=== PATIENT | male | born 1985 | race African-American/Black ===

== ENCOUNTER 2016-09-15 21:59 | Inpatient (IN) | payer MEDICAID, OTHER ==
[~2016-09-15] VITALS: Ht 175.3 cm; Wt 97.5 kg
[2016-09-16] MEDS ORDERED: SODIUM CHLORIDE 0.9% 1,000 ML IV ONE (04:23)
[2016-09-16] MEDS ORDERED: BACITRACIN ZINC OINT UDPKT TOP ONE (04:30)
[2016-09-16] MEDS ORDERED: CEFTRIAXONE 1 G PREMIX 50 ML IV ONE (04:30)
[2016-09-16] MEDS ORDERED: LIDOCAINE HCL 1%/EPI 1:200,000 30 ML VIAL MC ONE (04:30)
[2016-09-16 04:46] LABS: BASOPHILS % 0.7 % (0.0-2.0); EOSINOPHILS % 0.6 % (0.0-5.0); HEMATOCRIT. 43.2 % (42.0-52.0); HEMOGLOBIN. 14.9 g/dL (14.0-18.0); LYMPHOCYTES % 13.3 % (20.0-50.0); MEAN CORPUSCULAR HEMOGLOBIN 32.1 pg (28.0-32.0); MEAN CORPUSCULAR HGB CONC 34.6 g/dL (31.0-37.0); MEAN CORPUSCULAR VOLUME 92.9 fL (80.0-94.0); MEAN PLATELET VOLUME 7.8 fl (7.4-10.4); MONOCYTES % 7.9 % (2.0-8.0); NEUTROPHILS % 77.5 % (40.0-76.0); PLATELET 288 x1000/uL (130-400); RED BLOOD CELL COUNT 4.65 mill/uL (4.7-6.1); RED CELL DISTRIBUTION WIDTH 13.9 % (11.6-14.6); WHITE BLOOD COUNT 12.2 x1000/uL (4.5-11.0)
[2016-09-16 04:50] LABS: INR 1.1; PROTHROMBIN TIME 11.3 sec
[2016-09-16 04:57] LABS: ALANINE AMINOTRANSFERASE 35 IU/L (13-61); ALBUMIN 3.6 g/dL (3.4-5.0); ANION GAP 11; CALCIUM 8.8 mg/dL (8.5-10.1); CARBON DIOXIDE 30 mEq/L (21-32); CHLORIDE 101 mEq/L (98-107); INDEX HEMOLYSI 1 (1-3); INDEX ICTERIC 1 (1-4); INDEX LIPEMIC 1 (1-3); UREA NITROGEN BLOOD 11 mg/dL (7-21); eGFR > 60 mL/min (>60)
[2016-09-16 05:21] LABS: CLARITY URINE CLOUDY (CLEAR); COLOR URINE YELLOW (YELLOW); GLUCOSE URINE NEGATIVE (NEGATIVE); KETONES URINE NEGATIVE (NEGATIVE); LEUKOCYTE ESTERASE URINE 3+ (NEGATIVE); NITRITE URINE NEGATIVE (NEGATIVE); OCCULT BLOOD URINE NEGATIVE (NEGATIVE); PROTEIN URINE NEGATIVE (NEGATIVE); SPECIFIC GRAVITY URINE 1.009 (1.005-1.030); UROBILINOGEN URINE 0.2 E.U./dL (0.2-1.0)
[2016-09-16 05:52] LABS: SQUAMOUS EPITHELIAL CELL URINE FEW /lpf (RARE/1+)
[2016-09-16 05:53] LABS: RBC URINE 0-2 /hpf (0-2); WBC URINE 50-100 /hpf (0-2)
[2016-09-16 05:57] LABS: BACTERIA URINE TRACE
[2016-09-16] MEDS ORDERED: IOHEXOL-300 100 ML BOTTLE ONE (06:00)
[2016-09-16] MEDS ORDERED: SODIUM CHLORIDE 0.9% 10ML VIAL ONE (06:00)
[2016-09-16] MEDS ORDERED: SULFAMETHOXAZOLE/TRIMETHOPRIM 800/160MG TABLET PO ONE (06:45)
[2016-09-16 11:13] VITALS: BP 118/74
[2016-09-16 11:15] VITALS: BP 118/74
[2016-09-16] MEDS ORDERED: CLONIDINE 0.1MG TABLET PO PRN (15:00)
[2016-09-16] MEDS ORDERED: DIPHENHYDRAMINE 50MG/ML VIAL IV PRN (15:00)
[2016-09-16] MEDS ORDERED: HYDROCODONE/ACETAMINOPHEN 10/325MG TABLET PO PRN (15:00)
[2016-09-16] MEDS ORDERED: HYDROCODONE/ACETAMINOPHEN 5/325MG TABLET PO PRN (15:00)
[2016-09-16] MEDS ORDERED: LORAZEPAM 1MG TABLET PO PRN (15:00)
[2016-09-16] MEDS ORDERED: NA PHOS,M-B/NA PHOS,DI-BA ENEMA 118ML PR PRN (15:00)
[2016-09-16] MEDS ORDERED: MAGNESIUM/ALUMINUM HYDROXIDE/SIMETHICONE 30ML UDC PO PRN (15:00)
[2016-09-16] MEDS ORDERED: IPRATROPIUM/ALBUTEROL 0.5-3(2.5)MG/3ML NEB INH PRN (15:00)
[2016-09-16] MEDS ORDERED: GUAIFENESIN 200MG/10ML SUGAR FREE UDC PO PRN (15:00)
[2016-09-16] MEDS ORDERED: DOCUSATE SODIUM 100MG CAPSULE PO PRN (15:00)
[2016-09-16 16:00] VITALS: BP 129/86
[2016-09-16] MEDS: CLINDAMYCIN 600 MG in DEXTROSE 5% WATER 50 ML IV SCH (17:29)
[2016-09-16 20:00] VITALS: BP 126/69
[2016-09-17] VITALS: BP 136/83
[2016-09-17] MEDS: CLINDAMYCIN 600 MG in DEXTROSE 5% WATER 50 ML IV SCH ×2 (02:45→10:01)
[2016-09-17 04:00] VITALS: BP 115/84
[2016-09-17 06:30] LABS: BASOPHILS % 0.5 % (0.0-2.0); EOSINOPHILS % 3.3 % (0.0-5.0); HEMATOCRIT. 43.5 % (42.0-52.0); HEMOGLOBIN. 14.9 g/dL (14.0-18.0); LYMPHOCYTES % 23.1 % (20.0-50.0); MEAN CORPUSCULAR HEMOGLOBIN 32.3 pg (28.0-32.0); MEAN CORPUSCULAR HGB CONC 34.3 g/dL (31.0-37.0); MEAN CORPUSCULAR VOLUME 94.2 fL (80.0-94.0); MEAN PLATELET VOLUME 7.7 fl (7.4-10.4); MONOCYTES % 10.7 % (2.0-8.0); NEUTROPHILS % 62.4 % (40.0-76.0); PLATELET 287 x1000/uL (130-400); RED BLOOD CELL COUNT 4.62 mill/uL (4.7-6.1); RED CELL DISTRIBUTION WIDTH 13.9 % (11.6-14.6)
[2016-09-17 07:11] LABS: ALBUMIN 3.2 g/dL (3.4-5.0); CHLORIDE 103 mEq/L (98-107); INDEX HEMOLYSI 1 (1-3); INDEX ICTERIC 1 (1-4); INDEX LIPEMIC 1 (1-3)
[2016-09-17 07:22] LABS: ALANINE AMINOTRANSFERASE 34 IU/L (13-61); ANION GAP 10; CALCIUM 8.6 mg/dL (8.5-10.1); CARBON DIOXIDE 29 mEq/L (21-32); HDL CHOLESTEROL 80 mg/dL (40-59); LDL CHOLESTEROL 82 mg/dL (5-100); T4 FREE 1.01 ng/dL (0.76-1.46); TRIGLYCERIDE 61 mg/dL (0-150); UREA NITROGEN BLOOD 11 mg/dL (7-21); eGFR > 60 mL/min (>60)
[2016-09-17 08:00] VITALS: BP 121/69
[2016-09-17 12:00] VITALS: BP 118/71
[2016-09-17] MEDS ORDERED: CLIN-79 PO (13:24)
[2016-09-17 14:55] VITALS: BP 118/71
== END 2016-09-17 15:30 | disposition home or self-care (01) | DRG 364 ==
LOC: ER 09-16 07:54 → 6EST 09-16 09:03
PROVIDERS: ADMIT Internal Medicine; ATTEND Internal Medicine
PROC: 0W920ZZ Drainage of Face, Open Approach (ICD-10-PCS; principal; 2016-09-16)
DX: L03.211 Cellulitis of face (principal); F17.210 Nicotine dependence, cigarettes, uncomplicated; Z60.2 Problems related to living alone
CPT/HCPCS: 36415; 70491; 71010; 80053; 80061; 81001; 83605; 84439; 84443; 85025; 85610; 87040; 87077; 87086; 93005; 96374; 99285; A4216; J0696; J3490; J7030; J7060; Q9967

== ENCOUNTER 2016-09-18 15:18 | Emergency (ER) | payer MEDICAID ==
[~2016-09-18] VITALS: Ht 175.3 cm; Wt 100.0 kg
[~2016-09-18 15:18] MED LIST: CLIN-79 PO
[2016-09-18 15:38] VITALS: BP 129/78
== END 2016-09-18 19:06 | disposition home or self-care (01) ==
LOC: ER 18:37
DX: Z48.01 Encounter for change or removal of surgical wound dressing (principal); F17.200 Nicotine dependence, unspecified, uncomplicated; F12.10 Cannabis abuse, uncomplicated
CPT/HCPCS: 99283

== ENCOUNTER 2018-01-05 18:14 | Emergency (ER) | payer MEDICAID ==
[~2018-01-05] VITALS: Ht 177.8 cm; Wt 100.0 kg
[~2018-01-05 18:14] MED LIST changes: -CLIN-79 PO; +CLIN300C11 PO
[2018-01-05 22:07] LABS: BASOPHILS % 0.6 % (0.0-2.0); EOSINOPHILS % 1.1 % (0.0-5.0); HEMATOCRIT. 46.6 % (42.0-52.0); LYMPHOCYTES % 13.7 % (20.0-50.0); MEAN CORPUSCULAR HEMOGLOBIN 32.2 pg (28.0-32.0); MEAN CORPUSCULAR VOLUME 93.7 fL (80.0-94.0); MEAN PLATELET VOLUME 7.8 fl (7.4-10.4); MONOCYTES % 6.7 % (2.0-8.0); NEUTROPHILS % 77.9 % (40.0-76.0); PLATELET 282 x1000/uL (130-400); RED BLOOD CELL COUNT 4.97 mill/uL (4.7-6.1); RED CELL DISTRIBUTION WIDTH 14.4 % (11.6-14.6)
[2018-01-05 22:14] LABS: CHLORIDE 105 mEq/L (98-107)
[2018-01-05 22:18] LABS: ETHANOL BLOOD < 10 mg/dL
[2018-01-05 22:53] LABS: CLARITY URINE CLEAR (CLEAR); COLOR URINE YELLOW (YELLOW); KETONES URINE NEGATIVE (NEGATIVE); LEUKOCYTE ESTERASE URINE 1+ (NEGATIVE); NITRITE URINE NEGATIVE (NEGATIVE); OCCULT BLOOD URINE NEGATIVE (NEGATIVE); PROTEIN URINE NEGATIVE (NEGATIVE); SPECIFIC GRAVITY URINE 1.007 (1.005-1.030); UROBILINOGEN URINE 0.2 E.U./dL (0.2-1.0)
[2018-01-05 23:15] LABS: *AMPHETAMINES SCREEN URINE NEGATIVE (NEGATIVE); *BARBITURATES SCREEN URINE NEGATIVE (NEGATIVE); *BENZODIAZEPINES SCREEN URINE NEGATIVE (NEGATIVE); *COCAINE SCREEN URINE NEGATIVE (NEGATIVE); METHADONE URINE SCREEN NEGATIVE (NEGATIVE); OPIATES URINE SCREEN NEGATIVE (NEGATIVE); PHENCYCLIDINE URINE SCREEN NEGATIVE (NEGATIVE)
[2018-01-05 23:16] LABS: CANNABINOID URINE SCREEN PRESUMTIVE POSITIVE (NEGATIVE)
[2018-01-06] MEDS ORDERED: LEVOFLOXACIN 250MG TABLET PO SCH (02:00)
[2018-01-06 20:24] LABS: CHLORIDE 104 mEq/L (98-107)
[2018-01-06] MEDS ORDERED: LEVOFLOXACIN 250MG TABLET PO NR (21:45)
[2018-01-06 23:27] VITALS: BP 127/78
== END 2018-01-06 23:35 ==
LOC: ER 21:13
DX: T50.902A Poisoning by unspecified drugs, medicaments and biological substances, intentional self-harm, initial encounter (principal); F25.9 Schizoaffective disorder, unspecified; Y92.89 Other specified places as the place of occurrence of the external cause; N39.0 Urinary tract infection, site not specified; F10.10 Alcohol abuse, uncomplicated; Y90.0 Blood alcohol level of less than 20 mg/100 ml; F12.90 Cannabis use, unspecified, uncomplicated; F17.210 Nicotine dependence, cigarettes, uncomplicated
CPT/HCPCS: 36415; 71045; 80048; 80053; 80305; 80307; 81003; 85025; 99285; G0482; Z7610

== ENCOUNTER 2018-11-11 17:57 | Emergency (ER) | payer MEDICAID ==
[~2018-11-11] VITALS: Ht 175.3 cm; Wt 84.0 kg
[2018-11-11] MEDS ORDERED: LIDOCAINE HCL/PF 1% 10 MG/ML 5ML VIAL IJ ONE (19:00)
[2018-11-11] MEDS ORDERED: BACITRACIN ZINC OINT UDPKT TOP ONE (19:00)
[2018-11-11] MEDS ORDERED: TETANUS, DIPHTHERIA, PERTUSSIS VAC/PF 0.5ML (>7YR OLD) IM ONE (19:00)
[2018-11-11 20:07] VITALS: BP 132/82
== END 2018-11-11 20:13 | disposition home or self-care (01) ==
LOC: ER 18:00
DX: S01.01XA Laceration without foreign body of scalp, initial encounter (principal); F20.9 Schizophrenia, unspecified; F17.210 Nicotine dependence, cigarettes, uncomplicated; F12.10 Cannabis abuse, uncomplicated; Y04.0XXA Assault by unarmed brawl or fight, initial encounter; W22.09XA Striking against other stationary object, initial encounter; Y93.89 Activity, other specified; Y92.89 Other specified places as the place of occurrence of the external cause
CPT/HCPCS: 12002; 90471; 90715; 99283; J3490

== ENCOUNTER 2018-11-23 19:10 | Emergency (ER) | payer MEDICAID ==
[~2018-11-23] VITALS: Ht 177.8 cm; Wt 84.0 kg
[2018-11-23 19:35] VITALS: BP 11/63
== END 2018-11-23 23:45 | disposition home or self-care (01) ==
LOC: ER 23:27
DX: Z48.02 Encounter for removal of sutures (principal); F20.9 Schizophrenia, unspecified; F12.10 Cannabis abuse, uncomplicated; F17.210 Nicotine dependence, cigarettes, uncomplicated
CPT/HCPCS: 99281; Z7610

== ENCOUNTER 2019-02-12 04:34 | Emergency (ER) | payer MEDICAID ==
[~2019-02-12] VITALS: Ht 172.7 cm; Wt 84.9 kg
[2019-02-12 05:39] LABS: BASOPHILS % 0.4 % (0.0-2.0); EOSINOPHILS % 0.7 % (0.0-5.0); HEMATOCRIT. 47.2 % (42.0-52.0); HEMOGLOBIN. 16.3 g/dL (14.0-18.0); LYMPHOCYTES % 7.4 % (20.0-50.0); MEAN CORPUSCULAR HEMOGLOBIN 33.3 pg (28.0-32.0); MEAN CORPUSCULAR VOLUME 96.6 fL (80.0-94.0); MEAN PLATELET VOLUME 7.3 fl (7.4-10.4); MONOCYTES % 4.4 % (2.0-8.0); NEUTROPHILS % 87.1 % (40.0-76.0); PLATELET 302 x1000/uL (130-400); RED BLOOD CELL COUNT 4.89 mill/uL (4.7-6.1); RED CELL DISTRIBUTION WIDTH 14.7 % (11.6-14.6)
[2019-02-12 05:45] LABS: CHLORIDE 104 mEq/L (98-107)
[2019-02-12 05:49] LABS: ETHANOL BLOOD < 10 mg/dL
[2019-02-12 06:01] LABS: CLARITY URINE CLEAR (CLEAR); COLOR URINE DARK YELLOW (YELLOW); KETONES URINE 1+ (NEGATIVE); LEUKOCYTE ESTERASE URINE 1+ (NEGATIVE); NITRITE URINE NEGATIVE (NEGATIVE); OCCULT BLOOD URINE NEGATIVE (NEGATIVE); PROTEIN URINE NEGATIVE (NEGATIVE); SPECIFIC GRAVITY URINE 1.021 (1.005-1.030)
[2019-02-12] MEDS ORDERED: SODIUM CHLORIDE 0.9% 1,000 ML IV ONE (06:22)
[2019-02-12] MEDS ORDERED: MORPHINE SULFATE 4 MG/ML CPJ (NOT FOR IM USE) IV ONE (06:30)
[2019-02-12] MEDS: CEFTRIAXONE SODIUM 1 G/VIAL IM ONE ×2 (06:34→06:44)
[2019-02-12] MEDS: LIDOCAINE HCL/PF 1% 10 MG/ML 5ML VIAL IJ ONE ×2 (06:34→06:44)
[2019-02-12 06:49] LABS: *AMPHETAMINES SCREEN URINE PRESUMTIVE POSITIVE (NEGATIVE); *BARBITURATES SCREEN URINE NEGATIVE (NEGATIVE); *BENZODIAZEPINES SCREEN URINE NEGATIVE (NEGATIVE); *COCAINE SCREEN URINE NEGATIVE (NEGATIVE); CANNABINOID URINE SCREEN PRESUMTIVE POSITIVE (NEGATIVE); METHADONE URINE SCREEN NEGATIVE (NEGATIVE); OPIATES URINE SCREEN NEGATIVE (NEGATIVE); PHENCYCLIDINE URINE SCREEN NEGATIVE (NEGATIVE)
[2019-02-12] MEDS ORDERED: OLANZAPINE 10 MG/VIAL IM ONE (11:00)
[2019-02-12] MEDS ORDERED: LORAZEPAM 2MG/ML CPJ IM ONE (11:00)
[2019-02-12] MEDS ORDERED: LORAZEPAM 2MG/ML CPJ IM PRN (14:15)
[2019-02-12] MEDS ORDERED: OLANZAPINE 10 MG/VIAL IM PRN (14:15)
[2019-02-13 19:30] VITALS: BP 121/88
== END 2019-02-13 19:55 ==
LOC: ER 04:34
DX: R45.851 Suicidal ideations (principal); F20.9 Schizophrenia, unspecified; F17.200 Nicotine dependence, unspecified, uncomplicated; F12.10 Cannabis abuse, uncomplicated; F14.10 Cocaine abuse, uncomplicated
CPT/HCPCS: 36415; 80053; 80305; 80307; 80320; 80329; 81003; 85025; 96372; 99285; J0696; J2060; J3490; J7030; Z7610; G0480

== ENCOUNTER 2020-04-30 12:56 | Emergency (ER) | payer MEDICAID ==
[~2020-04-30] VITALS: Ht 182.9 cm; Wt 81.0 kg
[2020-04-30] MEDS ORDERED: SODIUM CHLORIDE 0.9% 1,000 ML IV ONE (15:30)
[2020-04-30 16:13] LABS: BASOPHILS % 0.5 % (0.0-2.0); EOSINOPHILS % 0.2 % (0.0-5.0); HEMATOCRIT. 45.3 % (42.0-52.0); HEMOGLOBIN. 15.7 g/dL (14.0-18.0); LYMPHOCYTES % 13.4 % (20.0-50.0); MEAN CORPUSCULAR HEMOGLOBIN 32.7 pg (28.0-32.0); MEAN CORPUSCULAR VOLUME 94.4 fL (80.0-94.0); MEAN PLATELET VOLUME 7.4 fl (7.4-10.4); MONOCYTES % 7.6 % (2.0-8.0); NEUTROPHILS % 78.3 % (40.0-76.0); PLATELET 286 x1000/uL (130-400); RED BLOOD CELL COUNT 4.79 mill/uL (4.7-6.1); RED CELL DISTRIBUTION WIDTH 15.1 % (11.6-14.6)
[2020-04-30 16:47] LABS: CLARITY URINE CLEAR (CLEAR); COLOR URINE YELLOW (YELLOW); KETONES URINE TRACE (NEGATIVE); LEUKOCYTE ESTERASE URINE NEGATIVE (NEGATIVE); NITRITE URINE NEGATIVE (NEGATIVE); OCCULT BLOOD URINE NEGATIVE (NEGATIVE); PH URINE 5.5 (4.5-8.0); PROTEIN URINE NEGATIVE (NEGATIVE); SPECIFIC GRAVITY URINE 1.008 (1.005-1.030); UROBILINOGEN URINE 0.2 E.U./dL (0.2-1.0)
[2020-04-30 17:46] LABS: *AMPHETAMINES SCREEN URINE NEGATIVE (NEGATIVE); *BARBITURATES SCREEN URINE NEGATIVE (NEGATIVE); *BENZODIAZEPINES SCREEN URINE NEGATIVE (NEGATIVE); *COCAINE SCREEN URINE NEGATIVE (NEGATIVE); CANNABINOID URINE SCREEN PRESUMTIVE POSITIVE (NEGATIVE)
[2020-04-30 17:47] LABS: METHADONE URINE SCREEN NEGATIVE (NEGATIVE); OPIATES URINE SCREEN NEGATIVE (NEGATIVE); PHENCYCLIDINE URINE SCREEN NEGATIVE (NEGATIVE)
[2020-04-30 19:01] LABS: CHLORIDE 110 mEq/L (98-107)
[2020-04-30 19:06] LABS: ETHANOL BLOOD < 10 mg/dL
[2020-04-30] MEDS ORDERED: LORAZEPAM 2MG/ML CPJ IV ONE (19:15)
[2020-04-30] MEDS ORDERED: LABETALOL 5MG/ML SYR 20 MG/4 ML SYRINGE IV ONE (21:00)
[2020-05-01] MEDS ORDERED: OLANZAPINE 10 MG/VIAL IM ONE (02:45)
[2020-05-01] MEDS ORDERED: LORAZEPAM 2MG/ML CPJ IM ONE (03:30)
[2020-05-01] MEDS ORDERED: ETOMIDATE 2MG/ML 10ML VIAL IV ONE (07:45)
[2020-05-01] MEDS ORDERED: FENTANYL CITRATE/PF 50MCG/ML 2ML VIAL IV ONE (07:45)
[2020-05-01] MEDS ORDERED: SUCCINYLCHOLINE CHLORIDE 200MG/10ML IV ONE (07:45)
[2020-05-03 10:37] VITALS: BP 128/66
== END 2020-05-03 11:15 | disposition home or self-care (01) ==
LOC: ER 13:10
DX: T43.592A Poisoning by other antipsychotics and neuroleptics, intentional self-harm, initial encounter (principal); G92 Toxic encephalopathy; F32.9 Major depressive disorder, single episode, unspecified; F12.10 Cannabis abuse, uncomplicated; I10 Essential (primary) hypertension; Z03.818 Encounter for observation for suspected exposure to other biological agents ruled out; Z75.1 Person awaiting admission to adequate facility elsewhere; Y92.018 Other place in single-family (private) house as the place of occurrence of the external cause
CPT/HCPCS: 36415; 70450; 80053; 80305; 80307; 80320; 80329; 81003; 85025; 93005; 96361; 96372; 96374; 96375; 99285; J2060; J3490; J7030; G0480

== ENCOUNTER 2021-05-01 18:57 | Emergency (ER) | payer MEDICAID ==
[~2021-05-01] VITALS: Ht 175.3 cm; Wt 104.0 kg
[~2021-05-01 18:57] MED LIST changes: -CLIN300C11 PO; +CLIN300C12 PO
[2021-05-01 19:19] VITALS: BP 138/87
[2021-05-01] MEDS ORDERED: IBUPROFEN 400MG TABLET PO ONE (19:30)
[2021-05-01] MEDS ORDERED: IBUP-2028 MT (20:37)
[2021-05-01] MEDS ORDERED: HYDR-4001 MT (20:37)
== END 2021-05-01 22:08 | disposition home or self-care (01) ==
LOC: ER 18:57
DX: S62.304A Unspecified fracture of fourth metacarpal bone, right hand, initial encounter for closed fracture (principal); F12.10 Cannabis abuse, uncomplicated; F14.10 Cocaine abuse, uncomplicated; Z86.59 Personal history of other mental and behavioral disorders; X58.XXXA Exposure to other specified factors, initial encounter; Y93.89 Activity, other specified; Y92.89 Other specified places as the place of occurrence of the external cause; Y99.8 Other external cause status
CPT/HCPCS: 29125; 73130; 99283

== ENCOUNTER 2023-04-22 19:12 | Emergency (ER) | payer MEDICAID, OTHER ==
[~2023-04-22] VITALS: Ht 175.3 cm; Wt 1044.5 kg
[~2023-04-22 19:12] MED LIST changes: +CLIN-194 PO; -CLIN300C12 PO; +HYDR-4001 MT; +IBUP-2028 MT
[2023-04-22 19:28] VITALS: BP 151/89; O2SAT 96
[2023-04-22] MEDS ORDERED: IBUP-2029 MT (22:03)
[2023-04-22 22:17] VITALS: PULSE 82; RESP 17; TEMP 99.5
== END 2023-04-22 22:18 | disposition home or self-care (01) ==
LOC: ER 19:12
DX: G56.02 Carpal tunnel syndrome, left upper limb (principal); F14.10 Cocaine abuse, uncomplicated; F12.10 Cannabis abuse, uncomplicated; Z86.59 Personal history of other mental and behavioral disorders
CPT/HCPCS: 29125; 99283; A4565

== ENCOUNTER 2023-10-17 12:18 | Emergency (ER) | payer OTHER, MEDICAID ==
[~2023-10-17] VITALS: Ht 175.3 cm; Wt 100.0 kg
[~2023-10-17 12:18] MED LIST changes: +IBUP-2029 MT
[2023-10-17 12:24] VITALS: TEMP 98.2; O2SAT 97
[2023-10-17] MEDS: ACETAMINOPHEN 325MG TABLET PO ONE (12:38)
[2023-10-17 13:21] VITALS: BP 140/78; PULSE 66; RESP 18
== END 2023-10-17 13:23 | disposition home or self-care (01) ==
LOC: ER 12:25
DX: Z20.822 Contact with and (suspected) exposure to COVID-19 (principal); F14.10 Cocaine abuse, uncomplicated; F12.10 Cannabis abuse, uncomplicated; Z86.59 Personal history of other mental and behavioral disorders
CPT/HCPCS: 87426; 99283

== ENCOUNTER 2024-01-28 20:05 | Emergency (ER) | payer OTHER ==
[2024-01-28 20:38] VITALS: PULSE 82; O2SAT 100
[2024-01-29] MEDS ORDERED: NAPR-681 PO (02:10)
[2024-01-29] MEDS ORDERED: CLOT15CR27 TP (02:10)
[2024-01-29] MEDS ORDERED: CEPH500C2 MT (02:10)
[2024-01-29] MEDS ORDERED: SULF1TAB48 MT (02:10)
== END 2024-01-29 02:29 | disposition home or self-care (01) ==
LOC: ER 20:05
DX: L03.032 Cellulitis of left toe (principal); B35.3 Tinea pedis; F31.9 Bipolar disorder, unspecified; F20.9 Schizophrenia, unspecified; F12.90 Cannabis use, unspecified, uncomplicated; F14.90 Cocaine use, unspecified, uncomplicated; Z79.899 Other long term (current) drug therapy; Z98.890 Other specified postprocedural states
CPT/HCPCS: 73630; 82962; 99283